=== PATIENT | male | born 1940 | race African-American/Black ===

== ENCOUNTER → 2016-11-06 | Outpatient (CLI) | payer OTHER ==
--- NOTE | ~2016-11-06 | MR17 ---
[facility] A Service of [facility] RADIOLOGY TEXT RESULTS PATIENT: JOAQUIM GOMEZ LOCATION: [facility] : 40 UNIT #: [id number] AGE: [address]: BHARGAV HAND SEX: M ORDER DR: [id number] [place] [id number] O MR#: [id number] Acc #: [id number] NAME: JOAQUIM GOMEZ : 1940 SEX: M STUDY DATE/TIME: 11/06/2016 13:41 UNIT: [facility] ROOM: STUDY DESCRIPTION: MR Brain WWo Contrast Attending Physician: Bhargav Hand Referring Physician: Bhargav Hand Ordering Physician: Bhargav Alcaraz Od Primary Care Physician: Toney Bird M.D. MRI CENTER REPORT This report is preliminary unless electronic signature is present. EXAM Brain MRI with and without contrast HISTORY Vitreous hemorrhage. Glaucoma. 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 TECHNIQUE Multiplanar imaging of the brain was performed with and without contrast. 20 mL of MultiHance was used. Comparison study from 11/06/2013 FINDINGS Diffusion weighted images are unremarkable. The routine brain images show moderately severe chronic ischemic changes in the periventricular deep white matter bilaterally. This is similar to the previous examination. There is no evidence of mass lesion, hemorrhage or edema. No midline shift is seen. Extraaxial structures are remarkable for atrophy of the right globe. No retroorbital masses are seen on either side. Pituitary gland is normal in size and the optic chiasm is unremarkable. Postcontrast imaging shows no abnormal enhancement. Inflammatory changes are seen in the paranasal sinuses with mucosal thickening noted in the right frontal sinus and posterior ethmoids bilaterally. 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 Chronic inflammatory sinus disease in the ethmoids predominately. No acute findings. Dictated by... Germain Clark M.D. THIS IS AN ELECTRONICALLY VERIFIED REPORT [facility] A Service of [facility] RADIOLOGY TEXT RESULTS PATIENT: JOAQUIM GOMEZ LOCATION: [facility] : 40 UNIT #: [id number] AGE: [address]: BHARGAV HAND SEX: M ORDER DR: Germain Clark M.D. at 11/07/2016 4:52 PM RLIzzy/arias TD: 11/07/2016 15:27 JOB #: [id number] MRI CENTER REPORT Page 1 of 1
--- NOTE | ~2016-11-06 | MR148 ---
[facility] A Service of [facility] RADIOLOGY TEXT RESULTS PATIENT: JOAQUIM GOMEZ LOCATION: [facility] : 40 UNIT #: [id number] AGE: [address]: BHARGAV HAND SEX: M ORDER DR: [id number] [place] [id number] O MR#: [id number] Acc #: [id number] NAME: JOAQUIM GOMEZ : 1940 SEX: M STUDY DATE/TIME: 11/06/2016 13:41 UNIT: [facility] ROOM: STUDY DESCRIPTION: MR Orbit Face and or Neck WWo Attending Physician: Bhargav Alcaraz Od Referring Physician: Bhargav Alcaraz Od Ordering Physician: Bhargav Alcaraz Od Primary Care Physician: Toney Bird M.D. MRI CENTER REPORT This report is preliminary unless electronic signature is present. EXAM MRI of the orbits with and without contrast HISTORY Glaucoma. 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 TECHNIQUE Multiplanar imaging of the orbits was performed with and without contrast. 20 mL of MultiHance was used. FINDINGS Orbital atrophy is seen on the right. Retroorbital structures are unremarkable bilaterally. There is no evidence of optic nerve edema or enlargement. No retroorbital masses or inflammatory changes are seen. The superior ophthalmic veins are symmetric and the extraocular muscles are normal in size. The optic chiasm is unremarkable. The pituitary gland and suprasellar cistern are normal. The cavernous sinuses are clear. Mucosal thickening is seen in the ethmoid air cells bilaterally extending up to the right frontoethmoid junction. After contrast administration, no abnormal enhancement is seen. IMPRESSION Ethmoid sinus inflammatory disease. Atrophy of the globe on the right consistent with previous retinal detachment. No other abnormalities noted. No evidence of retroorbital mass or venous enlargement. Dictated by... Germain Clark M.D. THIS IS AN ELECTRONICALLY VERIFIED REPORT Germain Clark M.D. at 11/07/2016 4:52 PM RLF/she [facility] A Service of [facility] RADIOLOGY TEXT RESULTS PATIENT: JOAQUIM GOMEZ LOCATION: [facility] : 40 UNIT #: [id number] AGE: [address]: BHARGAV HAND SEX: M ORDER DR: TD: 11/07/2016 15:30 JOB #: [id number] MRI CENTER REPORT Page 1 of 1
[2016-11-06 15:12] LABS: POC - CREATININE 1.18 mg/dL (0.64-1.27); POC - GFR >60.0 mL/min (>60)
== END | disposition home or self-care (01) ==
LOC: SMRI 13:08
PROVIDERS: Optometrist
DX: H40.122 Low-tension glaucoma, left eye (principal); H26.492 Other secondary cataract, left eye; H31.003 Unspecified chorioretinal scars, bilateral; H43.12 Vitreous hemorrhage, left eye; J32.9 Chronic sinusitis, unspecified; J32.2 Chronic ethmoidal sinusitis; H35.89 Other specified retinal disorders; Z96.1 Presence of intraocular lens
CPT/HCPCS: 70543; 70553; 82565; A9581